=== PATIENT | male | born 1985 | race Two or more races ===

== ENCOUNTER 2024-11-09 06:06 | Emergency (ER) | payer MEDICAID, SELFPAY ==
[2024-11-09 06:08] VITALS: BMI 48.8
--- NOTE | 2024-11-09 06:26 | PC.NURSE ---
[facility] NUMBER [id number].
[2024-11-09 06:37] VITALS: BP 143/85; PULSE 87; RESP 17; TEMP 36.7; O2SAT 96
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
[2024-11-09 09:46] VITALS: BP 148/79; PULSE 83; RESP 18; TEMP 36.6; O2SAT 96
== END 2024-11-09 09:48 | disposition home or self-care (01) ==
PROVIDERS: Emergency Provider Emergency Medicine; PCP Family Medicine
DX: S99.921A Unspecified injury of right foot, initial encounter (principal); S39.92XA Unspecified injury of lower back, initial encounter; S69.91XA Unspecified injury of right wrist, hand and finger(s), initial encounter; M77.31 Calcaneal spur, right foot; V89.2XXA Person injured in unspecified motor-vehicle accident, traffic, initial encounter
CPT/HCPCS: 72131; 73130; 73630; 99284